=== PATIENT | male | born 1970 | race Caucasian/White ===

== ENCOUNTER 2016-11-27 11:49 | Emergency (ER) | payer MEDICARE, OTHER ==
--- NOTE | ~2016-11-27 | EKG ---
PATIENT: BELLE REYES UNIT #: [id number] Ventricular Rate: 92 BPM Atrial Rate: 92 BPM P-R Interval: 146 ms QRS Duration: 84 ms Q-T Interval: 358 ms QTC Calculation(Bezet): 442 ms P [place]: 47 degrees Calculated R [place]: -13 degrees Calculated T [place]: 38 degrees Diagnosis Line: Normal sinus rhythm Diagnosis Line: Possible Left atrial enlargement Diagnosis Line: Left ventricular hypertrophy Diagnosis Line: Abnormal ECG Diagnosis Line: When compared with ECG of 18-OCT-2015 16:57, Diagnosis Line: No significant change was found Diagnosis Line: Confirmed by JUVENAL YEPEZ MD ([id number]) on Diagnosis Line: 11/29/2016 11:03:29 AM INTERPRETING MD: LUCHO MAYBERRY
--- NOTE | ~2016-11-27 | CT16 ---
[facility] A Service [facility] RADIOLOGY TEXT RESULTS PATIENT: BELLE REYES LOCATION: SED : 72 UNIT #: [id number] AGE: [address]: Howie Escalante MD SEX: M ORDER DR: [id number] [address] [address] [id number] E MR#: [id number] Acc #: [id number] NAME: BELLE REYES. : 1970 SEX: M STUDY DATE/TIME: 11/27/2016 14:34 UNIT: SED ROOM: STUDY DESCRIPTION: CT Angio Chest for PE Attending Physician: Howie Escalante M.D. Ordering Physician: Howie Escalante M.D. Primary Care Physician: [facility], [facility] MEDICAL IMAGING REPORT This report is preliminary unless electronic signature is present. EXAM CT scan of the chest with contrast, 11/27/2016. HISTORY Dizziness and shortness of breath beginning today. Evaluate for pulmonary embolus. TECHNIQUE Spiral CT was performed through the chest following intravenous contrast administration using pulmonary embolus protocol. 3-D reconstructions of the chest were then performed following intravenous contrast administration. This CT exam was performed with one or more of the following radiation dose reduction techniques: automatic exposure control, adjustment of mA and/or kV according to patient size, and iterative reconstruction. FINDINGS There is no CT evidence for pulmonary embolus. The heart is normal in size. There is no significant thoracic adenopathy. There are no pleural effusions. The lungs are clear. IMPRESSION No CT evidence for pulmonary embolus. Dictated by... Mekhi Smith M.D. THIS IS AN ELECTRONICALLY VERIFIED REPORT Mekhi Smith M.D. at 11/28/2016 2:13 PM [facility] A Service [facility] RADIOLOGY TEXT RESULTS PATIENT: BELLE REYES LOCATION: SED : 71 UNIT #: [id number] AGE: [address]: Howie Escalante MD SEX: M ORDER DR: Khanh TD: 11/28/2016 00:10 JOB #: [id number] MEDICAL IMAGING REPORT Page 1 of 1
--- NOTE | ~2016-11-27 | CR72 ---
[facility]. [facility] A Service of [facility] RADIOLOGY TEXT RESULTS PATIENT: BELLE REYES LOCATION: SED : 72 UNIT #: [id number] AGE: [address]: Howie Escalante MD SEX: M ORDER DR: [id number] [address] [address] [id number] E MR#: [id number] Acc #: [id number] NAME: BELLE REYES. : 1970 SEX: M STUDY DATE/TIME: 11/27/2016 12:39 UNIT: SED ROOM: STUDY DESCRIPTION: CR Chest Single View Portable Attending Physician: Howie Escalante M.D. Ordering Physician: Howie Escalante M.D. Primary Care Physician: [facility], [facility] MEDICAL IMAGING REPORT This report is preliminary unless electronic signature is present. EXAM Portable chest. HISTORY Shortness of air and cough today. Asthma. FINDINGS A single AP portable view of the chest shows both lungs to be clear. The heart is normal in size. The mediastinal contour is normal. No significant bone abnormalities are seen. IMPRESSION Normal portable chest. Dictated by... Enrique Turcios M.D. THIS IS AN ELECTRONICALLY VERIFIED REPORT Enrique Turcios M.D. at 11/28/2016 10:33 PM JOAO/jania TD: 11/27/2016 22:47 JOB #: [id number] MEDICAL IMAGING REPORT Page 1 of 1
[~2016-11-27 11:49] MED LIST: ABILIFY PO; ALBUTEROL17 GM INH; ANTIDEPRESSANT; ATARAX PO; ATIVAN PO; BACTRIM DS TABL1 TA1 PO; BENADRYL; CHLORPROMAZINE100 MG PO; CLONAZEPAM0.5 MG PO; COGENTIN PO; DIAZEPAM2 MG; DICLOFENAC; DICLOFENAC PO; DOXEPIN PO; EC-NAPROSYN500 MG PO; EFFEXOR XR150 MG PO; FLEXERIL10 M1 PO; GEODAN PO; IBUPROFEN PO; ITCH; KEFLEX500 MG PO; KLONOPIN1 MG PO; LAMICTAL PO; LATUDA80 MG PO; LORTAB 5/500 TA1 TA1 PO; LOTRIMIN 1% CR30 GM EXT; LOTRIMIN 1% CR30 GM TOP; LOTRIMIN30 GM; MAGIC MOUTHWASH PO; MOBIC PO; MOBIC15 MG PO; NAPROSYN500 MG PO; NAVANE PO; NEURONTIN300 MG PO; NEURONTIN800 MG PO; OXECTA7.5 MG PO; PAXIL PO; PERCOCET5/325 PO; PHENERGAN/CODEIN5 ML PO; PREDNISONE PO; PRIMADONE PO; PRISTIQ50 MG PO; PROPRANOLOL PO; REQUIP1 MG PO; ROBAXIN500 MG PO; SEROQUEL PO; SEROQUEL XR200 MG PO; SKELAXIN PO; STELAZINE PO; TOPAMAX PO; TRAZODONE PO; TRIAMCINOLONE AC1 GM EXT; TRILEPTAL PO; TYLENOL #3 PO; VOLTAREN50 MG PO; VOLTAREN75 MG PO; ZOLOFT PO; ZYPREXA10 M1 PO; ZYPREXA10 MG PO; ZYPREXA15 MG PO
[2016-11-27] MEDS ORDERED: SEROQUEL PO (11:51)
[2016-11-27] MEDS ORDERED: COGENTIN (11:51)
[2016-11-27] MEDS ORDERED: VALIUM10 M1 PO (11:52)
[2016-11-27] MEDS ORDERED: LATUDA80 MG PO (11:52)
[2016-11-27] MEDS ORDERED: NEURONTIN PO (11:52)
[2016-11-27] MEDS ORDERED: ZANAFLEX PO (11:55)
[2016-11-27 12:27] LABS: BASOPHIL% 0.8 % (0-2.5); EOSINOPHIL# 0.1 X10e3 (0-0.7); EOSINOPHIL% 1.9 % (0.0-7.0); HEMATOCRIT 44.2 % (38.0-50.0); HEMOGLOBIN 15.4 gm/dL (13.0-16.0); LYMPHOCYTE# 1.2 X10e3 (1.0-3.5); LYMPHOCYTE% 25.2 % (17.0-45.0); MEAN CELL VOLUME 90.1 FL (83-96); MEAN CORPUSCULAR HEMOGLOBIN 31.4 PG (28-34); MEAN CORPUSCULAR HGB CONC 34.9 g/dL (30-36); MONOCYTE# 0.4 X10e3 (0-1.0); MONOCYTE% 8.1 % (3.0-12.0); PLATELET COUNT 171 X10e3 (140-420); RED CELL DISTRIBUTION WIDTH 13.2 % (11.0-15.5); WHITE BLOOD COUNT 4.7 X10e3 (4.0-10.5)
[2016-11-27 12:28] LABS: DIFF IND NO
[2016-11-27 12:39] LABS: POC - CKMB <1.0 ng/mL (0.0-7.9); POC - TROPONIN <0.05 ng/mL (<=0.05)
[2016-11-27 12:43] LABS: ALBUMIN SERUM 4.6 g/dL (3.5-5.0); BILIRUBIN, DIRECT 0.1 mg/dL (0.0-0.2); BILIRUBIN,INDIRECT 0.7 mg/dL (0.0-0.9); BILIRUBIN,TOTAL 0.8 mg/dL (0.2-2.0); BUN/CREATININE RATIO 9.16; CALCIUM SERUM 8.7 mg/dL (8.4-10.2); CREATININE SERUM 1.2 mg/dL (0.6-1.4); GLOM FILT RATE Estimated 72.6 mL/min (>60); POTASSIUM 3.8 mmol/L (3.5-5.1); PROTEIN TOTAL SERUM 7.4 g/dL (6.0-8.3)
== END 2016-11-27 15:43 | disposition home or self-care (01) ==
LOC: SED 11:49
PROVIDERS: Emergency Medicine
DX: E86.0 Dehydration (principal); J44.9 Chronic obstructive pulmonary disease, unspecified; F17.200 Nicotine dependence, unspecified, uncomplicated; Z90.89 Acquired absence of other organs; Z88.0 Allergy status to penicillin; Z88.1 Allergy status to other antibiotic agents; Z88.8 Allergy status to other drugs, medicaments and biological substances; Z79.899 Other long term (current) drug therapy
CPT/HCPCS: 36415; 71010; 71275; 80048; 80076; 82553; 82947; 84484; 85025; 85379; 93005; 94640; 96360; 99284; G0480; Q9967

== ENCOUNTER 2016-12-20 10:56 | Emergency (ER) | payer MEDICARE, OTHER ==
[~2016-12-20 10:56] MED LIST changes: +COGENTIN; +NEURONTIN PO; +VALIUM10 M1 PO; +ZANAFLEX PO
== END 2016-12-20 11:55 | disposition home or self-care (01) ==
LOC: SED 10:56
DX: G56.31 Lesion of radial nerve, right upper limb (principal); F17.200 Nicotine dependence, unspecified, uncomplicated; Z90.89 Acquired absence of other organs; Z79.899 Other long term (current) drug therapy; Z88.0 Allergy status to penicillin; Z88.1 Allergy status to other antibiotic agents
CPT/HCPCS: 99284